=== PATIENT | male | born 1980 | race Two or more races ===

== ENCOUNTER 2024-12-24 20:31 | Emergency (ER) | payer OTHER ==
[~2024-12-24] VITALS: Ht 195.6 cm; Wt 79.4 kg
[2024-12-24 20:55] VITALS: BP 148/87; O2SAT 99
[2024-12-24] MEDS ORDERED: CEFTRIAXONE SODIUM 2,000 MG VIAL IV STA (21:11)
[2024-12-24] MEDS ORDERED: CEFTRIAXONE SODIUM 2,000 MG VIAL ONE (21:23)
[2024-12-24 23:29] LABS: HEMOGLOBIN 15.2 g/dL (13-16.00); MEAN CELL VOLUME 76.6 fL (80.0-100.00); MEAN CORPUSCULAR HEMOGLOBIN 26.6 pg (27.00-32.0); MEAN CORPUSCULAR HGB CONC 34.7 g/dl (32.0-36.0); PLATELET COUNT 309 K/uL (150-450); RED BLOOD COUNT 5.74 M/uL (4.00-6.00); RED CELL DISTRIBUTION WIDTH 14.4 % (11.5-14.5)
[2024-12-24 23:38] LABS: CALCIUM 9.5 mg/dL (8.5-10.1); CREATININE SERUM 0.9 mg/dL (0.70-1.30); GFR 91.67; POTASSIUM 4.33 mEq/L (3.5-5.1)
== END 2024-12-24 23:19 | disposition home or self-care (01) ==
LOC: ER 20:34
PROVIDERS: General Practice
DX: R05.8 Other specified cough (principal)